=== PATIENT | female | born 1985 | race American Indian/Alaskan Native ===

== ENCOUNTER 2018-09-14 16:15 | Emergency (ER) | payer MEDICAID ==
--- NOTE | 2018-09-14 17:08 | Event Note ---
ED Screening Note ED Screening Note: This is a 33 y.o. F. that presents to the ER with SI with a plan to jump of a bridge. Admits to hearing voices. States she haven't taken prescribed medication for 3 days. Patient admits to meth and marijuana use but nothing today. PMH of depression, HIV, and schizophrenia Patient states she called the crisis number [facility] and they hung up on her. Denies SI This initial assessment/diagnostic orders/clinical plan/treatment(s) is/are subject to change based on patients health status, clinical progression and re- assessment by fellow clinical providers in the ED. Further treatment and workup at subsequent clinical providers discretion. Patient/guardian urged not to elope from the ED as their condition may be serious if not clinically assessed and managed. Initial orders include: Labs
[2018-09-14 17:50] LABS: Basophils % (Auto) 0.6 % (0.0-1.8); Eosinophils # (Auto) 0.2 K/mm3 (0.0-0.4); Eosinophils % (Auto) 5.3 % (0.0-4.3); Hematocrit 36.7 % (30.3-42.9); Hemoglobin 12.1 gm/dl (10.1-14.3); Lymphocytes # (Auto) 0.9 K/mm3 (1.2-5.4); Lymphocytes % (Auto) 24.9 % (13.4-35.0); Mean Corpuscular HGB Conc 33 % (30-34); Mean Corpuscular Volume 87 fl (79-97); Monocytes # (Auto) 0.6 K/mm3 (0.0-0.8); Monocytes % (Auto) 15.5 % (0.0-7.3); Platelet Count 256 K/mm3 (140-440); Red Blood Count 4.21 M/mm3 (3.65-5.03); Red Cell Distribution Width 17.8 % (13.2-15.2)
[2018-09-14 18:03] LABS: Bacteria,Urine 1+ /HPF (Negative); Bilirubin,Urine SM (Negative); Blood,Urine NEG (Negative); Calcium Oxalate Crystals,Urine FEW; Color,Urine Amber (Yellow); Mucus,Urine 3+ /HPF
[2018-09-14 18:11] LABS: Benzodiazepines Screen,Urine PRESUMPTIVE NEGATIVE; Methadone Screen,Urine PRESUMPTIVE NEGATIVE; Opiate Screen,Urine PRESUMPTIVE NEGATIVE
[2018-09-14 18:27] LABS: Amphetamine Screen,Urine PRESUMPTIVE POSITIVE; Cannabinoid Screen,Urine PRESUMPTIVE POSITIVE; Cocaine Screen,Urine PRESUMPTIVE POSITIVE
[2018-09-14 18:29] LABS: Ictotest,Urine Negative (Negative)
[2018-09-14 18:31] LABS: Calcium 8.9 mg/dL (8.4-10.2)
--- NOTE | 2018-09-14 19:49 | Emergency Department Report ---
ED General Adult HPI - General Chief complaint: Psych Stated complaint: SI Time Seen by Provider: 09/14/18 17:03 Source: patient Mode of arrival: Ambulatory Limitations: No Limitations - History of Present Illness Initial comments: Patient is a 33-year-old female with past medical history of being HIV positive as well as depression and schizophrenia who is presenting with suicidal ideations. Patient states that she has been having thoughts of jumping off a bridge for the last 2 days. Patient has history of suicide attempts by drinking bleach. Patient states she doesn't want to live anymore. Patient denies any homicidal ideations or auditory visual hallucinations. Patient also states that for the past 3-4 days she's had a cough productive of clear sputum. Patient has had chills. Patient has minimal shortness of breath. Severity scale (0 -10): 0 - Related Data Allergies Allergy/AdvReac Type Severity Reaction Status Date / Time shellfish derived Allergy Unknown Verified 09/14/18 17:06 ED Review of Systems ROS: Stated complaint: SI Other details as noted in HPI Comment: All other systems reviewed and negative ED Past Medical Hx - Past Medical History Previous Medical History?: Yes Hx Psychiatric Treatment: Yes (paranoid schizophrenic) Hx HIV: Yes (on anti-virals) - Surgical History Past Surgical History?: No Additional Surgical History: x3 - Social History Smoking Status: Current Every Day Smoker Substance Use Type: Alcohol, Marijuana, Methamphetamines, Other ED Physical Exam - General Limitations: No Limitations General appearance: alert, in no apparent distress - Head Head exam: Present: atraumatic, normocephalic - Eye Eye exam: Present: normal appearance - ENT ENT exam: Present: mucous membranes moist - Neck Neck exam: Present: normal inspection - Respiratory Respiratory exam: Present: normal lung sounds bilaterally. Absent: respiratory distress, wheezes, rales, rhonchi - Cardiovascular Cardiovascular Exam: Present: regular rate, normal rhythm. Absent: systolic murmur, diastolic murmur, rubs, gallop - GI/Abdominal GI/Abdominal exam: Present: soft, normal bowel sounds. Absent: distended, tenderness, guarding, rebound - Extremities Exam Extremities exam: Present: normal inspection - Back Exam Back exam: Present: normal inspection - Neurological Exam Neurological exam: Present: alert, oriented X3 - Psychiatric Psychiatric exam: Present: normal affect, normal mood - Skin Skin exam: Present: warm, dry, intact, normal color. Absent: rash ED Course Vital Signs 09/14/18 09/14/18 17:03 18:38 Temperature 100.5 F H 99.7 F H Pulse Rate 106 H 89 Respiratory 18 18 Rate Blood Pressure 152/58 Blood Pressure 112/95 [Left] O2 Sat by Pulse 99 100 Oximetry ED Medical Decision Making - Lab Data Result diagrams: 09/14/18 17:26 09/14/18 17:26 Lab Results 09/14/18 09/14/18 09/14/18 Range/Units 17:25 17:25 17:26 WBC (4.5-11.0) K/mm3 RBC (3.65-5.03) M/mm3 Hgb (10.1-14.3) gm/dl Hct (30.3-42.9) % MCV (79-97) fl MCH (28-32) pg MCHC (30-34) % RDW (13.2-15.2) % Plt Count (140-440) K/mm3 Lymph % (Auto) (13.4-35.0) % [place] % (Auto) (0.0-7.3) % Eos % (Auto) (0.0-4.3) % Baso % (Auto) (0.0-1.8) % Lymph # (1.2-5.4) K/mm3 [place] # (0.0-0.8) K/mm3 Eos # (0.0-0.4) K/mm3 Baso # (0.0-0.1) K/mm3 Seg Neutrophils % (40.0-70.0) % Seg Neutrophils # (1.8-7.7) K/mm3 Sodium (137-145) mmol/L Potassium (3.6-5.0) mmol/L Chloride (98-107) mmol/L Carbon Dioxide (22-30) mmol/L Anion Gap mmol/L BUN (7-17) mg/dL Creatinine (0.7-1.2) mg/dL Estimated GFR ml/min BUN/Creatinine Ratio % Glucose (65-100) mg/dL Calcium (8.4-10.2) mg/dL HCG, Qual Negative (Negative) Urine Color [place] (Yellow) Urine Turbidity Cloudy (Clear) Urine pH 5.0 (5.0-7.0) Ur Specific [place] 1.040 H (1.003-1.030) Urine Protein 30 mg/dl (Negative) mg/dL Urine Glucose (UA) Neg (Negative) mg/dL Urine Ketones Tr (Negative) mg/dL Urine Blood Neg (Negative) Urine Nitrite Neg (Negative) Urine Bilirubin Sm (Negative) Urine Ictotest Negative (Negative) Urine Urobilinogen 2.0 (<2.0) mg/dL Ur Leukocyte Esterase Tr (Negative) Urine WBC (Auto) 2.0 (0.0-6.0) /HPF Urine RBC (Auto) 5.0 (0.0-6.0) /HPF U Epithel Cells (Auto) 42.0 H (0-13.0) /HPF Urine Bacteria (Auto) 1+ (Negative) /HPF Calcium Oxalate Crystal Few Urine Mucus 3+ /HPF Salicylates (2.8-20.0) mg/dL Urine Opiates Screen Presumptive negative Urine Methadone Screen Presumptive negative Acetaminophen (10.0-30.0) ug/mL Ur Barbiturates Screen Presumptive negative Ur Phencyclidine Scrn Presumptive negative Ur Amphetamines Screen Presumptive positive U Benzodiazepines Scrn Presumptive negative Urine Cocaine Screen Presumptive positive U Marijuana (THC) Screen Presumptive positive Drugs of Abuse Note Disclamer Plasma/Serum Alcohol (0-0.07) % 09/14/18 09/14/18 09/14/18 Range/Units 17:26 17:26 17:26 WBC (4.5-11.0) K/mm3 RBC (3.65-5.03) M/mm3 Hgb (10.1-14.3) gm/dl Hct (30.3-42.9) % MCV (79-97) fl MCH (28-32) pg MCHC (30-34) % RDW (13.2-15.2) % Plt Count (140-440) K/mm3 Lymph % (Auto) (13.4-35.0) % [place] % (Auto) (0.0-7.3) % Eos % (Auto) (0.0-4.3) % Baso % (Auto) (0.0-1.8) % Lymph # (1.2-5.4) K/mm3 [place] # (0.0-0.8) K/mm3 Eos # (0.0-0.4) K/mm3 Baso # (0.0-0.1) K/mm3 Seg Neutrophils % (40.0-70.0) % Seg Neutrophils # (1.8-7.7) K/mm3 Sodium 140 (137-145) mmol/L Potassium 4.0 (3.6-5.0) mmol/L Chloride 104.4 (98-107) mmol/L Carbon Dioxide 25 (22-30) mmol/L Anion Gap 15 mmol/L BUN 10 (7-17) mg/dL Creatinine 1.2 (0.7-1.2) mg/dL Estimated GFR 52 ml/min BUN/Creatinine Ratio 8 % Glucose 83 (65-100) mg/dL Calcium 8.9 (8.4-10.2) mg/dL HCG, Qual (Negative) Urine Color (Yellow) Urine Turbidity (Clear) Urine pH (5.0-7.0) Ur Specific [place] (1.003-1.030) Urine Protein (Negative) mg/dL Urine Glucose (UA) (Negative) mg/dL Urine Ketones (Negative) mg/dL Urine Blood (Negative) Urine Nitrite (Negative) Urine Bilirubin (Negative) Urine Ictotest (Negative) Urine Urobilinogen (<2.0) mg/dL Ur Leukocyte Esterase (Negative) Urine WBC (Auto) (0.0-6.0) /HPF Urine RBC (Auto) (0.0-6.0) /HPF U Epithel Cells (Auto) (0-13.0) /HPF Urine Bacteria (Auto) (Negative) /HPF Calcium Oxalate Crystal Urine Mucus /HPF Salicylates < 0.3 L (2.8-20.0) mg/dL Urine Opiates Screen Urine Methadone Screen Acetaminophen < 5.0 L (10.0-30.0) ug/mL Ur Barbiturates Screen Ur Phencyclidine Scrn Ur Amphetamines Screen U Benzodiazepines Scrn Urine Cocaine Screen U Marijuana (THC) Screen Drugs of Abuse Note Plasma/Serum Alcohol (0-0.07) % 09/14/18 09/14/18 Range/Units 17:26 17:26 WBC 3.7 L (4.5-11.0) K/mm3 RBC 4.21 (3.65-5.03) M/mm3 Hgb 12.1 (10.1-14.3) gm/dl Hct 36.7 (30.3-42.9) % MCV 87 (79-97) fl MCH 29 (28-32) pg MCHC 33 (30-34) % RDW 17.8 H (13.2-15.2) % Plt Count 256 (140-440) K/mm3 Lymph % (Auto) 24.9 (13.4-35.0) % [place] % (Auto) 15.5 H (0.0-7.3) % Eos % (Auto) 5.3 H (0.0-4.3) % Baso % (Auto) 0.6 (0.0-1.8) % Lymph # 0.9 L (1.2-5.4) K/mm3 [place] # 0.6 (0.0-0.8) K/mm3 Eos # 0.2 (0.0-0.4) K/mm3 Baso # 0.0 (0.0-0.1) K/mm3 Seg Neutrophils % 53.7 (40.0-70.0) % Seg Neutrophils # 2.0 (1.8-7.7) K/mm3 Sodium (137-145) mmol/L Potassium (3.6-5.0) mmol/L Chloride (98-107) mmol/L Carbon Dioxide (22-30) mmol/L Anion Gap mmol/L BUN (7-17) mg/dL Creatinine (0.7-1.2) mg/dL Estimated GFR ml/min BUN/Creatinine Ratio % Glucose (65-100) mg/dL Calcium (8.4-10.2) mg/dL HCG, Qual (Negative) Urine Color (Yellow) Urine Turbidity (Clear) Urine pH (5.0-7.0) Ur Specific [place] (1.003-1.030) Urine Protein (Negative) mg/dL Urine Glucose (UA) (Negative) mg/dL Urine Ketones (Negative) mg/dL Urine Blood (Negative) Urine Nitrite (Negative) Urine Bilirubin (Negative) Urine Ictotest (Negative) Urine Urobilinogen (<2.0) mg/dL Ur Leukocyte Esterase (Negative) Urine WBC (Auto) (0.0-6.0) /HPF Urine RBC (Auto) (0.0-6.0) /HPF U Epithel Cells (Auto) (0-13.0) /HPF Urine Bacteria (Auto) (Negative) /HPF Calcium Oxalate Crystal Urine Mucus /HPF Salicylates (2.8-20.0) mg/dL Urine Opiates Screen Urine Methadone Screen Acetaminophen (10.0-30.0) ug/mL Ur Barbiturates Screen Ur Phencyclidine Scrn Ur Amphetamines Screen U Benzodiazepines Scrn Urine Cocaine Screen U Marijuana (THC) Screen Drugs of Abuse Note Plasma/Serum Alcohol < 0.01 (0-0.07) % - Radiology Data Radiology results: image reviewed (CXR WNKL) - Medical Decision Making There is a 33-year-old Citizen Of [place] female who is presenting with suicidal ideations. Patient also noted to have a low-grade temperature and cough. X- rays negative for infiltrate. Patient will be started on Bactrim secondary to her HIV positive status and not knowing her CD4 count. Patient is medically cleared for psychiatric placement at this time. Critical care attestation.: If time is entered above; I have spent that time in minutes in the direct care of this critically ill patient, excluding procedure time. ED Disposition Clinical Impression: Suicidal ideation, Encounter for psychiatric assessment Upper respiratory infection Qualifiers: URI type: unspecified URI Qualified Code(s): J06.9 - Acute upper respiratory infection, unspecified Disposition: DC/TX-65 PSY HOSP/PSY UNIT Is pt being admited?: No Does the pt Need Aspirin: No Condition: Stable Time of Disposition: 20:05
--- NOTE | 2018-09-14 20:05 | XRay Report ---
CHEST 2 VIEWS 195 INDICATION / CLINICAL INFORMATION: cough with fever. COMPARISON: None available. FINDINGS: SUPPORT DEVICES: None. HEART / MEDIASTINUM: No significant abnormality. LUNGS / PLEURA: No significant pulmonary or pleural abnormality. No pneumothorax. ADDITIONAL FINDINGS: No significant additional findings. IMPRESSION: No significant acute abnormality Signer Name: Nico Redmond MD Signed: 09/14/2018 8:00 PM Workstation Name: [id number]
[2018-09-14] MEDS: BACTRIM DS PO SCH (22:44)
[2018-09-14] MEDS ORDERED: ATIVAN IV PRN (22:56)
[2018-09-14] MEDS ORDERED: ATIVAN PO PRN ×2 (22:56)
[2018-09-15] MEDS ORDERED: BENADRYL PO ONE (08:48)
[2018-09-15] MEDS: BACTRIM DS PO SCH ×2 (09:52→22:06)
--- NOTE | 2018-09-15 13:53 | Consultation ---
History of Present Illness - Reason for Consult Consult date: 09/15/18 Reason for consult: Mental Health Evaluation Requesting physician: CIRILO DHALIWAL - Chief Complaint Chief complaint: "I don't know what to do" - History of Present Psychiatric Illness 33 y.o. AA female who presented to the ER for SI's. Today the patient was calm and cooperative during t he assessment. She endorsed SI's with a plan to jump off a bridge. She stated that she dealing with a lot of stressors at this time. The patient did not elaborate about her stressors when asked. She did acknowledged a past suicide attempt. She stated that she has a hx of depression and took Wellbutrin that was effective. She stated that she haven't been compliant with her medication in weeks. She stated that she is from [place], [place]. She denies Hi's and AVH's. She denies a poor appetite, but acknowledged erratic sleep because of her stressors. She stated that she have used recreational drugs all her life. She denies alcohol consumption (etoh). . Medications and Allergies Allergies Allergy/AdvReac Type Severity Reaction Status Date / Time shellfish derived Allergy Unknown Verified 09/14/18 17:06 Active Meds: Active Medications Lorazepam (Ativan) 2 mg PO Q1HR PRN PRN Reason: CIWA-Ar 8-15 Lorazepam (Ativan) 4 mg PO Q1HR PRN PRN Reason: CIWA-Ar 16-25 Lorazepam (Ativan) 4 mg IV Q15MIN PRN PRN Reason: CIWA-Ar >25 Trimethoprim/Sulfamethoxazole (Bactrim Ds) 1 each PO Q12HR NIELS Last Admin: 09/15/18 09:52 Dose: 1 each Documented by: Past psychiatric history - Past Medical History Past Medical History: HIV/AIDS, other (Preg x 4) Past Surgical History: No surgical history - past Psychiatric treatment and history psychiatric treatment history: Hx of depression and substance abuse. Denies a fam psy hx. - Social History Social history: lives with family Mental Status Exam - Vital signs Last Vital Signs Temp 99.3 F 09/15/18 13:47 Pulse 71 09/15/18 13:47 Resp 18 09/15/18 13:47 BP 117/67 09/15/18 08:02 Pulse Ox 96 09/15/18 13:47 - Exam Narrative exam: MSE: Appearance: calm, cooperative Behavior: regular eye contact Speech: regular rate and tone Mood: "depressed" Affect: flat Thought Process: circumstantial Thought Content: denies HI's and AVH's Motor Activity: sitting up in bed Cognition: A/O x3 Insight: variable to fair Judgment: poor Results Result Diagrams: 09/14/18 17:26 09/14/18 17:26 Abnormal lab results 09/14/18 09/14/18 09/14/18 Range/Units 17:25 17:26 17:26 WBC (4.5-11.0) K/mm3 RDW (13.2-15.2) % [place] % (Auto) (0.0-7.3) % Eos % (Auto) (0.0-4.3) % Lymph # (1.2-5.4) K/mm3 POC Glucose (70-105) Ur Specific [place] 1.040 H (1.003-1.030) U Epithel Cells (Auto) 42.0 H (0-13.0) /HPF Salicylates < 0.3 L (2.8-20.0) mg/dL Acetaminophen < 5.0 L (10.0-30.0) ug/mL 09/14/18 09/15/18 Range/Units 17:26 12:11 WBC 3.7 L (4.5-11.0) K/mm3 RDW 17.8 H (13.2-15.2) % [place] % (Auto) 15.5 H (0.0-7.3) % Eos % (Auto) 5.3 H (0.0-4.3) % Lymph # 0.9 L (1.2-5.4) K/mm3 POC Glucose 132 H (70-105) Ur Specific [place] (1.003-1.030) U Epithel Cells (Auto) (0-13.0) /HPF Salicylates (2.8-20.0) mg/dL Acetaminophen (10.0-30.0) ug/mL All other labs normal. Assessment and Plan Assessment and plan: Impression: MDD, Severe Type. Substance Use DO (cocaine/amphetamines).Cannabis Use DO. Today the patient was calm and cooperative dung the assessment. The patient endorsed SI's. No acute withdrawals noted. DDx: Substance Induced Mood DO Recommendation/Plan: Continue 1013 and start Wellbutrin 150 mg PO daily for depression and Melatonin 5 mg PO HS for sleep. Discussed possible suicidality/medication induced rebeka with the patient reference Wellbutrin, she verbalize understanding. Ordered Line of site for safety, the patient's assigned nurse informed. Dispo: The patient was referred to inpatient psy services. Will staff with Dr Ami Mary.
[2018-09-15] MEDS: WELLBUTRIN PO SCH (15:14)
[2018-09-15] MEDS: MELATONIN PO SCH (22:06)
[2018-09-16] MEDS: BACTRIM DS PO SCH ×2 (09:48→21:49)
[2018-09-16] MEDS: WELLBUTRIN PO SCH (09:49)
[2018-09-16] MEDS ORDERED: BENADRYL PO ONE (11:35)
--- NOTE | 2018-09-16 13:35 | Progress Note ---
Subjective - Reason for Consult Consult date: 09/16/18 Reason for consult: Psychiatry Follow-up - Chief Complaint Chief complaint: "The patient refused to talk" 33 y.o. AA female who presented to the ER for SI's. Today the patient refused to cooperate during the assessment. Will follow up with the patient in 24 hours. Mental Status Exam - Vital signs Last Vital Signs Temp 98.0 F 09/16/18 08:04 Pulse 71 09/16/18 08:04 Resp 18 09/16/18 08:04 BP 108/66 09/16/18 08:04 Pulse Ox 100 09/16/18 08:04 - Exam Narrative exam: Unable to complete the MSE because the patient refused to cooperate. Assessment and Plan Impression: MDD, Severe Type. Substance Use DO (cocaine/amphetamines).Cannabis Use DO. Today the patient refused to cooperate during the assessment. DDx: Substance Induced Mood DO Recommendation/Plan: Continue 1013 and Wellbutrin 150 mg PO daily for depression and Melatonin 5 mg PO HS for sleep. Discussed possible suicidality/medication induced rebeka with the patient reference Wellbutrin, she verbalize understanding. Ordered Line of site for safety, the patient's assigned nurse informed. Dispo: The patient was referred to inpatient psy services. Will staff with Dr Ami Mary.
[2018-09-16] MEDS: MELATONIN PO SCH (21:49)
[2018-09-17] MEDS: WELLBUTRIN PO SCH (10:35)
[2018-09-17] MEDS: BACTRIM DS PO SCH ×2 (10:35→21:31)
--- NOTE | 2018-09-17 16:55 | Progress Note ---
Subjective - Reason for Consult Consult date: 09/17/18 Reason for consult: follow up - Chief Complaint Chief complaint: "I want to jump off a bridge." 33 y.o. AA female who presented to the ER for SI to jump off a bridge. Yesterday the record indicates she was uncooperative. Today she complains of cough and wants medication. The nurse is stationed outside her room and has not heard her cough. She states she is still suicidal but the voices "aren't so bad" now that she has her medication. She is not taking an antipsychotic. Mental Status Exam - Vital signs Last Vital Signs Temp 98.6 F 09/17/18 08:54 Pulse 83 09/17/18 08:54 Resp 18 09/17/18 08:54 BP 119/75 09/17/18 08:54 Pulse Ox 99 09/17/18 08:54 - Exam Orientation: time, place, person Affect: depressed Mood: congruent with affect Thought content: other (suicidal ideation with a plan) Thought Process: Circumstantial Perceptions: auditory, hallucinations Speech: normal rate and pattern Concentration: focused Motor activity: restless Level of consciousness: alert Memory: Intact Sleep Symptoms: Difficulty Falling Asleep Appetite: decreased Interaction: cooperative Assessment and Plan Impression: MDD, Severe Type. Psychosis unspecified Substance Use DO (cocaine/amphetamines).Cannabis Use DO. DDx: Substance Induced psychotic disorder. substance induced mood disorder Recommendation/Plan: Continue 1013 and Wellbutrin 150 mg PO daily for depression and Melatonin 5 mg PO HS for sleep. Discussed possible suicidality/medication induced rebeka with the patient reference Wellbutrin, she verbalize unde rstanding. consider antipsychotic if AH persist. nurse informed of her complaint of cough Dispo: The patient was referred to inpatient psy services. Will staff with Dr Ami Mary.
[2018-09-17] MEDS: MELATONIN PO SCH (21:31)
[2018-09-18] MEDS: WELLBUTRIN PO SCH (11:02)
[2018-09-18] MEDS: BACTRIM DS PO SCH ×2 (11:02→22:25)
--- NOTE | 2018-09-18 18:19 | Progress Note ---
Subjective - Reason for Consult Consult date: 09/18/18 Reason for consult: follow up - Chief Complaint Chief complaint: "Have you got the bridge yet; to jump off of?" 33 y.o. AA female who presented to the ER for SI to jump off a bridge. She reports suicidal ideation. She is concerned she is not getting her usual medications for schizophrenia/bipolar. She is also concerned she is not getting her HIV meds. She brought them to the hospital. Nursing staff reconciled her meds while UI ENGINEER present. Mental Status Exam - Vital signs Last Vital Signs Temp 98.2 F 09/18/18 13:38 Pulse 87 09/18/18 13:38 Resp 18 09/18/18 13:38 BP 118/73 09/18/18 13:38 Pulse Ox 100 09/18/18 13:38 - Exam Narrative exam: Orientation: time, place, person Affect: depressed Mood: congruent with affect Thought content: other (suicidal ideation with a plan) Thought Process: Circumstantial Perceptions: auditory, hallucinations Speech: normal rate and pattern Concentration: focused Motor activity: restless Level of consciousness: alert Memory: Intact Sleep Symptoms: Difficulty Falling Asleep Appetite: decreased Interaction: cooperative Assessment and Plan Impression: reports hx of schizoaffective d/o, bipolar type no manic symptoms continues to have suicidal ideation with a plan Substance Use DO (cocaine/amphetamines).Cannabis Use DO. DDx: Substance Induced psychotic disorder. substance induced mood disorder Recommendation/Plan: Continue 1013 and Wellbutrin xl 150 mg PO daily for depression, depakote er 1000mg hs, and vistaril 50mg tid, and seroquel 200mg hs. Discussed possible suicidality/medication induced rebeka with the patient reference Wellbutrin, she verbalize understanding. She states this combination of medication works well for her. Dispo: The patient was referred to inpatient psy services. Will staff with Dr Ami Mary.
[2018-09-18] MEDS: VALTREX PO SCH (22:25)
[2018-09-18] MEDS: NORVIR PO SCH (22:30)
[2018-09-18] MEDS: DESCOVY PO SCH (22:30)
[2018-09-18] MEDS: PREZISTA PO SCH (22:30)
[2018-09-18] MEDS: VISTARIL PO PRN (22:46)
[2018-09-19 08:58] LABS: Alanine Aminotransferase 10 units/L (7-56)
[2018-09-19] MEDS ORDERED: WELLBUTRIN XL PO SCH (10:00)
[2018-09-19] MEDS: VALTREX PO SCH (11:00)
[2018-09-19] MEDS: DESCOVY PO SCH (11:00)
[2018-09-19] MEDS: NORVIR PO SCH (11:00)
[2018-09-19] MEDS: BACTRIM DS PO SCH (11:00)
[2018-09-19] MEDS: PREZISTA PO SCH (11:00)
[2018-09-19] MEDS: VISTARIL PO PRN (13:12)
--- NOTE | 2018-09-20 08:20 | Progress Note ---
Subjective - Reason for Consult Consult date: 09/19/18 Reason for consult: Pscyhiatry Follow-up - Chief Complaint Chief complaint: "The patient refused to cooperate" 33 y.o. AA female who presented to the ER for SI's. Today the patient refused to cooperate during the assessment. Several attempts was made to engage the patient, but was unsuccessful. Will attempt to reassess the patient in 24 hours. Mental Status Exam - Vital signs Last Vital Signs Temp 98.4 F 09/19/18 13:00 Pulse 101 H 09/19/18 13:00 Resp 18 09/19/18 13:00 BP 153/98 09/19/18 13:00 Pulse Ox 100 09/19/18 13:00 - Exam Narrative exam: Unable to complete the MSE because the patient refused to cooperate. Assessment and Plan Impression: MDD, Severe Type. Substance Use DO (cocaine/amphetamines).Cannabis Use DO. Today the patient refused to cooperate during the assessment. DDx: Substance Induced Mood DO Recommendation/Plan: Continue 1013 and Wellbutrin 150 mg PO daily for depression, Depakote 1000 mg PO HS for mood, Seroquel 200 mg PO HS for mood, and Vistaril 50 mg PO TID PRN for acute anxiety. Discussed possible suicidality/medication induced rebeka with the patient reference Wellbutrin, she verbalize understanding. Ordered Line of site for safety, the patient's assigned nurse informed. Dispo: The patient was referred to inpatient psy services. Staffed with Dr Ami Mary.
--- NOTE | 2018-09-20 10:14 | Progress Note ---
Subjective - Reason for Consult Consult date: 09/20/18 Reason for consult: Psychiatry Follow-up - Chief Complaint Chief complaint: "I have to much going" 33 y.o. AA female who presented to the ER for SI's. Today the patient calm during the assessment. She stated that she has a lot on her mind that she does not want to discuss. She did state that life isn't fair. She continue to endorse SI's with a plan to jump off as bridge. She denies HI's and AVH's. Mental Status Exam - Vital signs Last Vital Signs Temp 97.4 F L 09/20/18 09:00 Pulse 92 H 09/20/18 09:00 Resp 16 09/20/18 09:00 BP 113/80 09/20/18 09:00 Pulse Ox 95 09/20/18 09:00 - Exam Narrative exam: MSE: Appearance: calm, cooperative Behavior: regular eye contact Speech: regular rate and tone Mood: "depressed" Affect: flat Thought Process: circumstantial Thought Content: denies HI's and AVH's Motor Activity: sitting up in bed Cognition: A/O x3 Insight: vague Judgment: poor Assessment and Plan Impression: MDD, Severe Type. Substance Use DO (cocaine/amphetamines).Cannabis Use DO. Today the patient was calm during the during the assessment. The patient endorsed SI's with a plan to jum; DDx: Substance Induced Mood DO Recommendation/Plan: Reevaluate the patient's 1013 in 24 hours to determine if it will be extended. Continue Wellbutrin 150 mg PO daily for depression, Depakote 1000 mg PO HS for mood, Seroquel 200 mg PO HS for mood, and Vistaril 50 mg PO TID PRN for acute anxiety. Discussed possible suicidality/medication induced rebeka with the patient reference Wellbutrin, she verbalize understanding. Ordered Line of site for safety, the patient's assigned nurse informed. Dispo: The patient was referred to inpatient psy services. Staffed with Dr Ami Mary.
[2018-09-20 10:21] LABS: Chol/HDL Ratio 2.51 %
[2018-09-20] MEDS: WELLBUTRIN XL PO SCH (11:05)
[2018-09-20] MEDS: VISTARIL PO PRN (11:05)
[2018-09-20] MEDS ORDERED: VALACYCLOVIR 1000 MG PO SCH (16:00)
[2018-09-20] MEDS ORDERED: NON-FORMULARY (Valacyclovir Hcl [Valtrex] 1,000 MG) PO SCH (16:00)
[2018-09-20] MEDS: DESCOVY PO SCH (16:10)
[2018-09-20] MEDS: NORVIR PO SCH (16:11)
[2018-09-20] MEDS: PREZISTA PO SCH (16:11)
[2018-09-21] MEDS ORDERED: COLACE PO ONE (11:18)
[2018-09-21] MEDS: WELLBUTRIN XL PO SCH (11:25)
[2018-09-21] MEDS: NORVIR PO SCH ×2 (11:25→11:27)
[2018-09-21] MEDS: DESCOVY PO SCH ×2 (11:25→11:27)
[2018-09-21] MEDS: PREZISTA PO SCH ×2 (11:25→11:28)
[2018-09-21] MEDS: VALTREX PO SCH (11:30)
[2018-09-21] MEDS: VISTARIL PO PRN ×2 (11:47→23:57)
--- NOTE | 2018-09-21 13:34 | Progress Note ---
Subjective - Reason for Consult Consult date: 09/21/18 Reason for consult: Psychiatric Follow-up Evaluation - Chief Complaint Chief complaint: "I feel okay." Patient is a 33 y.o. AA female who presented to the ER for suicidal ideations. Today the patient is calm and cooperative during the assessment. She states, " I'm still going to jump off the bridge. I'm depressed. I don't want to talk about it." Patient reports appropriate sleep and appetite. Later she reports intermittent VH's of demons. She denies AH's and delusions. Mental Status Exam - Vital signs Last Vital Signs Temp 98.1 F 09/21/18 08:09 Pulse 82 09/21/18 08:09 Resp 16 09/21/18 08:09 BP 107/65 09/21/18 08:09 Pulse Ox 100 09/21/18 08:09 - Exam Narrative exam: Mental Status Exam: Appearance: calm, cooperative Behavior: regular eye contact Speech: regular rate and tone Mood: "okay"; depressed Affect: flat Thought Process: circumstantial Thought Content: denies HI's and AH's; + SI's and VH's Motor Activity: sitting up in bed Cognition: A/O x 3 Insight: poor Judgment: poor Assessment and Plan Impression: MDD, Severe Type. Substance Use DO (cocaine/amphetamines).Cannabis Use DO. Today the patient is calm and cooperative during the during the assessment. The patient endorses SI's with a plan to jump off bridge and intermittent VH's of demons. DDx: Substance Induced Mood DO Recommendation/Plan: 1. Will extend patient's 1013. 2. Continue Wellbutrin 150 mg PO daily for depression, Depakote 1000 mg PO HS for mood, Seroquel 200 mg PO HS for mood, and Vistaril 50 mg PO TID PRN for acute anxiety. Discussed possible suicidality/medication induced rebeka with the patient reference Wellbutrin, she verbalize understanding. Ordered Line of site for safety, the patient's assigned nurse informed. Disposition: Accepted to [facility]. Staffed with Dr. Ami Mary.
[2018-09-22] MEDS: DESCOVY PO SCH (11:00)
[2018-09-22] MEDS: PREZISTA PO SCH (11:00)
[2018-09-22] MEDS: NORVIR PO SCH (11:00)
--- NOTE | 2018-09-22 11:38 | Progress Note ---
Subjective - Reason for Consult Consult date: 09/22/18 Reason for consult: Psychiatry Follow-up - Chief Complaint Chief complaint: "I have nothing to talk about" Patient is a 33 y.o. AA female who presented to the ER for suicidal ideations. Today the patient is somewhat uncooperative during the assessment. She would not answer most questions asked of her. She continue to endorse SI's, but would not confirm or deny a suicide plan. No gestures of HI's. No indications of side effects of her medications. Mental Status Exam - Vital signs Last Vital Signs Temp 98.1 F 09/22/18 07:00 Pulse 68 09/22/18 07:00 Resp 18 09/22/18 07:00 BP 102/78 09/22/18 07:00 Pulse Ox 100 09/22/18 07:00 - Exam Narrative exam: MSE: Appearance: calm Behavior: regular eye contact Speech: regular rate and tone Mood: unable to assess Affect: flat Thought Process: unable to assess Thought Content: no gestures of HI's Motor Activity: sitting up in bed Cognition: A/O x3 Insight: vague Judgment: poor Assessment and Plan Impression: MDD, Severe Type. Substance Use DO (cocaine/amphetamines).Cannabis Use DO. Today the patient was calm during the during the assessment. DDx: Substance Induced Mood DO Recommendation/Plan: Continue 1013, Wellbutrin 150 mg PO daily for depression, Depakote 1000 mg PO HS for mood, Seroquel 200 mg PO HS for mood, and Vistaril 50 mg PO TID PRN for acute anxiety. Discussed possible suicidality/medication induced rebeka with the patient reference Wellbutrin, she verbalize understanding. Ordered Line of site for safety, the patient's assigned nurse informed. Dispo: The patient was accepted at [facility] for inpatient psy services, pending transport time. . Will staff with Dr Ami Mary.
[2018-09-22] MEDS: VALTREX PO SCH (12:00)
[2018-09-22] MEDS: WELLBUTRIN XL PO SCH (12:00)
[2018-09-22] MEDS: VISTARIL PO PRN ×2 (15:50→21:39)
[2018-09-23] MEDS: DESCOVY PO SCH (10:49)
[2018-09-23] MEDS: NORVIR PO SCH (10:49)
[2018-09-23] MEDS: VALTREX PO SCH (10:49)
[2018-09-23] MEDS: PREZISTA PO SCH (10:49)
[2018-09-23] MEDS: WELLBUTRIN XL PO SCH (11:00)
[2018-09-23 15:11] VITALS: BP 107/73
--- NOTE | 2018-09-23 15:28 | Progress Note ---
Subjective - Reason for Consult Consult date: 09/23/18 Reason for consult: Psychiatry Follow-up - Chief Complaint Chief complaint: "I want help" Patient is a 33 y.o. AA female who presented to the ER for suicidal ideations. Today the patient was calm during the assessment. She stated that she need help for her drug use and mental health. The patient have been vague and uncooperative previously during the interview. She was more engaging today. She continue to endorse SI's. She denies HI's and AVH's. She denies any side effects from her medications. Mental Status Exam - Vital signs Last Vital Signs Temp 97.7 F 09/23/18 13:40 Pulse 103 H 09/23/18 13:40 Resp 18 09/23/18 13:40 BP 107/73 09/23/18 13:40 Pulse Ox 100 09/23/18 13:40 - Exam Narrative exam: MSE: Appearance: calm Behavior: regular eye contact Speech: regular rate and tone Mood: "okay" Affect: flat Thought Process: circumstantial Thought Content: denies HI's and AVH's Motor Activity: sitting up in bed Cognition: A/O x3 Insight: variable Judgment: poor Assessment and Plan Impression: MDD, Severe Type. Substance Use DO (cocaine/amphetamines).Cannabis Use DO. Today the patient was calm during the assessment. DDx: Substance Induced Mood DO Recommendation/Plan: Continue 1013, Wellbutrin 150 mg PO daily for depression, Depakote 1000 mg PO HS for mood, Seroquel 200 mg PO HS for mood, and Vistaril 50 mg PO TID PRN for acute anxiety. Discussed possible suicidality/medication induced rebeka with the patient reference Wellbutrin, she verbalize understanding. Ordered Line of site for safety, the patient's assigned nurse informed. Dispo: The patient was accepted at [facility] for inpatient psy services, pending transport time. . Will staff with Dr Ami Mary.
== END 2018-09-23 19:47 ==
LOC: EEVIPCON 16:15 → ED 16:15
DX: F32.9 Major depressive disorder, single episode, unspecified (principal); R45.851 Suicidal ideations; J06.9 Acute upper respiratory infection, unspecified; F20.0 Paranoid schizophrenia; F17.200 Nicotine dependence, unspecified, uncomplicated; F12.10 Cannabis abuse, uncomplicated; F15.10 Other stimulant abuse, uncomplicated; Z21 Asymptomatic human immunodeficiency virus [HIV] infection status; Z91.013 Allergy to seafood
CPT/HCPCS: 36415; 71046; 80048; 80061; 80164; 80307; 80320; 81001; 82150; 82962; 83036; 83690; 84075; 84450; 84460; 84703; 85025; G0480; Q0177

== ENCOUNTER 2018-11-27 19:43 | Emergency (ER) | payer SELFPAY ==
[2018-11-27 20:31] LABS: Bilirubin,Urine NEG (Negative); Blood,Urine NEG (Negative); Color,Urine Amber (Yellow); Mucus,Urine 2+ /HPF
[2018-11-27 20:39] LABS: Benzodiazepines Screen,Urine PRESUMPTIVE NEGATIVE; Methadone Screen,Urine PRESUMPTIVE NEGATIVE; Opiate Screen,Urine PRESUMPTIVE NEGATIVE
[2018-11-27 21:01] LABS: Amphetamine Screen,Urine PRESUMPTIVE POSITIVE; Cannabinoid Screen,Urine PRESUMPTIVE POSITIVE; Cocaine Screen,Urine PRESUMPTIVE POSITIVE
[2018-11-27 21:36] LABS: Basophils % (Auto) 0.6 % (0.0-1.8); Eosinophils # (Auto) 0.4 K/mm3 (0.0-0.4); Eosinophils % (Auto) 7.8 % (0.0-4.3); Hematocrit 36.7 % (30.3-42.9); Hemoglobin 11.7 gm/dl (10.1-14.3); Lymphocytes # (Auto) 1.3 K/mm3 (1.2-5.4); Lymphocytes % (Auto) 25.9 % (13.4-35.0); Mean Corpuscular HGB Conc 32 % (30-34); Mean Corpuscular Volume 85 fl (79-97); Monocytes # (Auto) 0.5 K/mm3 (0.0-0.8); Monocytes % (Auto) 9.3 % (0.0-7.3); Platelet Count 327 K/mm3 (140-440); Red Blood Count 4.34 M/mm3 (3.65-5.03); Red Cell Distribution Width 18.6 % (13.2-15.2)
[2018-11-27 22:08] LABS: Calcium 8.9 mg/dL (8.4-10.2)
[2018-11-27] MEDS ORDERED: HALDOL IM PRN (22:19)
[2018-11-27] MEDS ORDERED: ATIVAN IM PRN (22:19)
--- NOTE | 2018-11-27 22:21 | Emergency Department Report ---
<DOMINGO HOOK - Last Filed: 11/27/18 23:42> ED General Adult HPI - General Chief complaint: Psych Stated complaint: SUICIDAL/MH EVAL Time Seen by Provider: 11/27/18 21:16 Source: patient, police (collateral information is not available at this time. However, the patient reportedly is brought to the hospital by EMS.), EMS ( EMS documentation not available at time of chart dictation ), RN notes reviewed, old records reviewed Mode of arrival: Ambulatory Limitations: No Limitations - History of Present Illness Initial comments: This is a 33-year-old female who is not known to this provider previously. Patient presents to the ER with a primary complaint of painless suicidality. Patient's past history includes schizophrenia, reported HIV, not currently taking any medications. The patient denies physical pain. The patient indicated that she wanted to jump off of her bridge, or hang herself. She does not endorse any other complaints at this time. She indicates that she would like to sleep. There is no indication of trauma. -: Gradual Severity scale (0 -10): 0 Improves with: none Worsens with: none Associated Symptoms: denies other symptoms - Related Data Home Medications Medication Instructions Recorded Confirmed Last Taken Valacyclovir HCl [Valtrex] 1,000 mg PO QDAY 09/15/18 11/27/18 1 Month Ago ~10/28/18 Darunavir [Prezista] 800 mg PO QDAY 09/18/18 11/27/18 1 Month Ago ~10/28/18 Descovy 200-25 mg Tablet 200 mg PO DAILY 09/18/18 11/27/18 1 Month Ago ~10/28/18 Ritonavir [Norvir] 100 mg PO QDAY 09/20/18 11/27/18 1 Month Ago ~10/28/18 Allergies Allergy/AdvReac Type Severity Reaction Status Date / Time shellfish derived Allergy Unknown Verified 09/14/18 17:06 ED Review of Systems Constitutional: denies: malaise Eyes: denies: eye discharge ENT: denies: epistaxis Respiratory: denies: wheezing Cardiovascular: denies: syncope Gastrointestinal: denies: abdominal pain Genitourinary: denies: dysuria Musculoskeletal: denies: back pain Psychiatric: suicidal thoughts ED Past Medical Hx - Past Medical History Previous Medical History?: Yes Hx Psychiatric Treatment: Yes (paranoid schizophrenic noncompliant x1 month) Hx HIV: Yes (on anti-virals noncompliant x 1 month) - Surgical History Past Surgical History?: Yes Additional Surgical History: x3 - Social History Smoking Status: Current Every Day Smoker Substance Use Type: None - Medications Home Medications: Home Medications Medication Instructions Recorded Confirmed Last Taken Type Valacyclovir HCl [Valtrex] 1,000 mg PO QDAY 09/15/18 11/27/18 1 Month Ago History ~10/28/18 Darunavir [Prezista] 800 mg PO QDAY 09/18/18 11/27/18 1 Month Ago History ~10/28/18 Descovy 200-25 mg Tablet 200 mg PO DAILY 09/18/18 11/27/18 1 Month Ago History ~10/28/18 Ritonavir [Norvir] 100 mg PO QDAY 09/20/18 11/27/18 1 Month Ago History ~10/28/18 ED Physical Exam - General Limitations: No Limitations General appearance: alert, in no apparent distress - Head Head exam: Present: atraumatic, normocephalic - Eye Eye exam: Present: normal appearance, EOMI. Absent: nystagmus - ENT ENT exam: Present: normal exam, normal orophraynx, mucous membranes moist, normal external ear exam - Neck Neck exam: Present: normal inspection, full ROM. Absent: tenderness, meningismus - Respiratory Respiratory exam: Present: normal lung sounds bilaterally. Absent: respiratory distress - Cardiovascular Cardiovascular Exam: Present: regular rate, normal rhythm, normal heart sounds. Absent: bradycardia, tachycardia, irregular rhythm, systolic murmur, diastolic murmur, rubs, gallop - GI/Abdominal GI/Abdominal exam: Present: soft. Absent: distended, tenderness, guarding, rebound, rigid, pulsatile mass - Extremities Exam Extremities exam: Present: normal inspection, full ROM, other (2+ pulses noted in the bilateral upper, lower extremities. There is no long bone tenderness. Musculoskeletal compartments are soft. The pelvis is stable.). Absent: pedal edema, joint swelling, calf tenderness - Back Exam Back exam: Present: normal inspection. Absent: tenderness, CVA tenderness (R), paraspinal tenderness, vertebral tenderness - Neurological Exam Neurological exam: Present: alert (the patient is sleepy but arousable), other (is no facial droop. Moving 4 extremities spontaneously. Phonating in full sentences. Extraocular movements are intact. 5 out of 5 strength in 4 extrem ities.) - Psychiatric Psychiatric exam: Present: flat affect, suicidal ideation - Skin Skin exam: Present: warm, dry, intact, normal color. Absent: rash ED Course - Reevaluation(s) Reevaluation #1: 11/27/18 23:42 Laboratory studies reviewed and appreciated. Patient does not appear to have an immediate medical contraindication to psychiatric admission, evaluation, consultation, and placement at this time. Crisis team will be updated. ED Medical Decision Making - Lab Data Result diagrams: 11/27/18 21:02 11/27/18 21:02 Vital Signs 11/27/18 19:59 Temperature 99.3 F Pulse Rate 98 H Respiratory 18 Rate Blood Pressure 121/84 [Left] O2 Sat by Pulse 100 Oximetry Lab Results 11/27/18 11/27/18 11/27/18 Range/Units 21:02 21:02 21:02 WBC (4.5-11.0) K/mm3 RBC (3.65-5.03) M/mm3 Hgb (10.1-14.3) gm/dl Hct (30.3-42.9) % MCV (79-97) fl MCH (28-32) pg MCHC (30-34) % RDW (13.2-15.2) % Plt Count (140-440) K/mm3 Lymph % (Auto) (13.4-35.0) % [place] % (Auto) (0.0-7.3) % Eos % (Auto) (0.0-4.3) % Baso % (Auto) (0.0-1.8) % Lymph # (1.2-5.4) K/mm3 [place] # (0.0-0.8) K/mm3 Eos # (0.0-0.4) K/mm3 Baso # (0.0-0.1) K/mm3 Seg Neutrophils % (40.0-70.0) % Seg Neutrophils # (1.8-7.7) K/mm3 Sodium 139 (137-145) mmol/L Potassium 4.0 (3.6-5.0) mmol/L Chloride 99.8 (98-107) mmol/L Carbon Dioxide 21 L (22-30) mmol/L Anion Gap 22 mmol/L BUN 7 (7-17) mg/dL Creatinine 1.4 H (0.7-1.2) mg/dL Estimated GFR 53 ml/min BUN/Creatinine Ratio 5 % Glucose 66 (65-100) mg/dL Calcium 8.9 (8.4-10.2) mg/dL HCG, Qual (Negative) Urine Color (Yellow) Urine Turbidity (Clear) Urine pH (5.0-7.0) Ur Specific [place] (1.003-1.030) Urine Protein (Negative) mg/dL Urine Glucose (UA) (Negative) mg/dL Urine Ketones (Negative) mg/dL Urine Blood (Negative) Urine Nitrite (Negative) Urine Bilirubin (Negative) Urine Urobilinogen (<2.0) mg/dL Ur Leukocyte Esterase (Negative) Urine WBC (Auto) (0.0-6.0) /HPF Urine RBC (Auto) (0.0-6.0) /HPF U Epithel Cells (Auto) (0-13.0) /HPF Urine Mucus /HPF Salicylates < 0.3 L (2.8-20.0) mg/dL Urine Opiates Screen Urine Methadone Screen Acetaminophen < 5.0 L (10.0-30.0) ug/mL Ur Barbiturates Screen Ur Phencyclidine Scrn Ur Amphetamines Screen U Benzodiazepines Scrn Urine Cocaine Screen U Marijuana (THC) Screen Drugs of Abuse Note Plasma/Serum Alcohol (0-0.07) % 11/27/18 11/27/18 11/27/18 Range/Units 21:02 21:02 21:02 WBC 5.1 (4.5-11.0) K/mm3 RBC 4.34 (3.65-5.03) M/mm3 Hgb 11.7 (10.1-14.3) gm/dl Hct 36.7 (30.3-42.9) % MCV 85 (79-97) fl MCH 27 L (28-32) pg MCHC 32 (30-34) % RDW 18.6 H (13.2-15.2) % Plt Count 327 (140-440) K/mm3 Lymph % (Auto) 25.9 (13.4-35.0) % [place] % (Auto) 9.3 H (0.0-7.3) % Eos % (Auto) 7.8 H (0.0-4.3) % Baso % (Auto) 0.6 (0.0-1.8) % Lymph # 1.3 (1.2-5.4) K/mm3 [place] # 0.5 (0.0-0.8) K/mm3 Eos # 0.4 (0.0-0.4) K/mm3 Baso # 0.0 (0.0-0.1) K/mm3 Seg Neutrophils % 56.4 (40.0-70.0) % Seg Neutrophils # 2.9 (1.8-7.7) K/mm3 Sodium (137-145) mmol/L Potassium (3.6-5.0) mmol/L Chloride (98-107) mmol/L Carbon Dioxide (22-30) mmol/L Anion Gap mmol/L BUN (7-17) mg/dL Creatinine (0.7-1.2) mg/dL Estimated GFR ml/min BUN/Creatinine Ratio % Glucose (65-100) mg/dL Calcium (8.4-10.2) mg/dL HCG, Qual Negative (Negative) Urine Color (Yellow) Urine Turbidity (Clear) Urine pH (5.0-7.0) Ur Specific [place] (1.003-1.030) Urine Protein (Negative) mg/dL Urine Glucose (UA) (Negative) mg/dL Urine Ketones (Negative) mg/dL Urine Blood (Negative) Urine Nitrite (Negative) Urine Bilirubin (Negative) Urine Urobilinogen (<2.0) mg/dL Ur Leukocyte Esterase (Negative) Urine WBC (Auto) (0.0-6.0) /HPF Urine RBC (Auto) (0.0-6.0) /HPF U Epithel Cells (Auto) (0-13.0) /HPF Urine Mucus /HPF Salicylates (2.8-20.0) mg/dL Urine Opiates Screen Urine Methadone Screen Acetaminophen (10.0-30.0) ug/mL Ur Barbiturates Screen Ur Phencyclidine Scrn Ur Amphetamines Screen U Benzodiazepines Scrn Urine Cocaine Screen U Marijuana (THC) Screen Drugs of Abuse Note Plasma/Serum Alcohol < 0.01 (0-0.07) % 11/27/18 11/27/18 Range/Units Unknown Unknown WBC (4.5-11.0) K/mm3 RBC (3.65-5.03) M/mm3 Hgb (10.1-14.3) gm/dl Hct (30.3-42.9) % MCV (79-97) fl MCH (28-32) pg MCHC (30-34) % RDW (13.2-15.2) % Plt Count (140-440) K/mm3 Lymph % (Auto) (13.4-35.0) % [place] % (Auto) (0.0-7.3) % Eos % (Auto) (0.0-4.3) % Baso % (Auto) (0.0-1.8) % Lymph # (1.2-5.4) K/mm3 [place] # (0.0-0.8) K/mm3 Eos # (0.0-0.4) K/mm3 Baso # (0.0-0.1) K/mm3 Seg Neutrophils % (40.0-70.0) % Seg Neutrophils # (1.8-7.7) K/mm3 Sodium (137-145) mmol/L Potassium (3.6-5.0) mmol/L Chloride (98-107) mmol/L Carbon Dioxide (22-30) mmol/L Anion Gap mmol/L BUN (7-17) mg/dL Creatinine (0.7-1.2) mg/dL Estimated GFR ml/min BUN/Creatinine Ratio % Glucose (65-100) mg/dL Calcium (8.4-10.2) mg/dL HCG, Qual (Negative) Urine Color [place] (Yellow) Urine Turbidity Slightly-cloudy (Clear) Urine pH 5.0 (5.0-7.0) Ur Specific [place] 1.029 (1.003-1.030) Urine Protein 30 mg/dl (Negative) mg/dL Urine Glucose (UA) Neg (Negative) mg/dL Urine Ketones Tr (Negative) mg/dL Urine Blood Neg (Negative) Urine Nitrite Neg (Negative) Urine Bilirubin Neg (Negative) Urine Urobilinogen 2.0 (<2.0) mg/dL Ur Leukocyte Esterase Neg (Negative) Urine WBC (Auto) 2.0 (0.0-6.0) /HPF Urine RBC (Auto) 2.0 (0.0-6.0) /HPF U Epithel Cells (Auto) 8.0 (0-13.0) /HPF Urine Mucus 2+ /HPF Salicylates (2.8-20.0) mg/dL Urine Opiates Screen Presumptive negative Urine Methadone Screen Presumptive negative Acetaminophen (10.0-30.0) ug/mL Ur Barbiturates Screen Presumptive negative Ur Phencyclidine Scrn Presumptive negative Ur Amphetamines Screen Presumptive positive U Benzodiazepines Scrn Presumptive negative Urine Cocaine Screen Presumptive positive U Marijuana (THC) Screen Presumptive positive Drugs of Abuse Note Disclamer Plasma/Serum Alcohol (0-0.07) % - Medical Decision Making Differential diagnosis, including but not limited to: Psychosis, suicidality, medical clearance for psychiatric placement, medication noncompliance Assessment and plan: 33-year-old female, no evidence of trauma, calm and cooperative, endorsing suicidality with plan to jump off a bridge and having herself. Screening laboratory studies ordered. 1013 order. Psychiatric consultation ordered. Laboratory studies so far appear To be at baseline. ED Disposition Clinical Impression: Medical clearance for psychiatric admission, Non compliance w medication regimen Disposition: DC/TX-65 PSY HOSP/PSY UNIT Does the pt Need Aspirin: No Condition: Good Referrals: PRIMARY CAREMD [Primary Care Provider] - 3-5 Days <CIRILO DHALIWAL - Last Filed: 11/29/18 04:42> ED Review of Systems ROS: Stated complaint: SUICIDAL/MH EVAL Other details as noted in HPI ED Course Vital Signs 11/27/18 11/28/18 11/28/18 19:59 01:15 09:00 Temperature 99.3 F 98.7 F 98.2 F Pulse Rate 98 H 65 60 Respiratory 18 18 16 Rate Blood Pressure 121/84 102/59 102/65 [Left] O2 Sat by Pulse 100 100 99 Oximetry 11/28/18 11/29/18 19:53 02:18 Temperature 98.1 F 98.4 F Pulse Rate 69 67 Respiratory 18 16 Rate Blood Pressure 115/84 112/42 [Left] O2 Sat by Pulse 98 100 Oximetry - Reevaluation(s) Reevaluation #2: 11/29/18 04:42 This has been accepted to [facility] Medical Decision Making - Lab Data Result diagrams: 11/27/18 21:02 11/27/18 21:02 Critical care attestation.: If time is entered above; I have spent that time in minutes in the direct care of this critically ill patient, excluding procedure time. ED Disposition Is pt being admited?: No Does the pt Need Aspirin: No Time of Disposition: 04:42
--- NOTE | 2018-11-28 12:55 | Consultation ---
History of Present Illness - Reason for Consult Consult date: 11/28/18 Reason for consult: Mental Health Evaluation Requesting physician: DOMINGO HOOK - Chief Complaint Chief complaint: "The patient refused to cooperate" - History of Present Psychiatric Illness 33 y.o. A female who presented to the ER for SI's. Today the patient was calm, but uncooperative during the assessment. Several attempts was made to engage the patient, but was unsuccessful. Medications and Allergies Allergies Allergy/AdvReac Type Severity Reaction Status Date / Time shellfish derived Allergy Unknown Verified 09/14/18 17:06 Home Medications Medication Instructions Recorded Confirmed Last Taken Type Valacyclovir HCl [Valtrex] 1,000 mg PO QDAY 09/15/18 11/27/18 1 Month Ago History ~10/28/18 Darunavir [Prezista] 800 mg PO QDAY 09/18/18 11/27/18 1 Month Ago History ~10/28/18 Descovy 200-25 mg Tablet 200 mg PO DAILY 09/18/18 11/27/18 1 Month Ago History ~10/28/18 Ritonavir [Norvir] 100 mg PO QDAY 09/20/18 11/27/18 1 Month Ago History ~10/28/18 Active Meds: Active Medications Haloperidol Lactate (Haldol) 5 mg IM Q6HR PRN PRN Reason: Agitation Lorazepam (Ativan) 2 mg IM Q4HR PRN PRN Reason: Agitation Past psychiatric history - Past Medical History Past Medical History: other (Unable to obtain ) Past Surgical History: Other (Unable to obtain ) - past Psychiatric treatment and history psychiatric treatment history: Hx of Mood DO per previous ER visit. Unable to obtain a fam psy hx. - Social History Social history: other (Unable to obtain ) Mental Status Exam - Vital signs Last Vital Signs Temp 98.2 F 11/28/18 09:00 Pulse 60 11/28/18 09:00 Resp 16 11/28/18 09:00 BP 102/65 11/28/18 09:00 Pulse Ox 99 11/28/18 09:00 - Exam Narrative exam: Unable to complete the MSE because the patient refused to cooperate. Results Result Diagrams: 11/27/18 21:02 11/27/18 21:02 Abnormal lab results 11/27/18 11/27/18 11/27/18 Range/Units 21:02 21:02 21:02 MCH (28-32) pg RDW (13.2-15.2) % [place]w % (Auto) (0.0-7.3) % Eos % (Auto) (0.0-4.3) % Carbon Dioxide 21 L (22-30) mmol/L Creatinine 1.4 H (0.7-1.2) mg/dL Salicylates < 0.3 L (2.8-20.0) mg/dL Acetaminophen < 5.0 L (10.0-30.0) ug/mL Valproic Acid (50-100) ug/mL 11/27/18 11/27/18 Range/Units 21:02 22:13 MCH 27 L (28-32) pg RDW 18.6 H (13.2-15.2) % Bartholomew % (Auto) 9.3 H (0.0-7.3) % Eos % (Auto) 7.8 H (0.0-4.3) % Carbon Dioxide (22-30) mmol/L Creatinine (0.7-1.2) mg/dL Salicylates (2.8-20.0) mg/dL Acetaminophen (10.0-30.0) ug/mL Valproic Acid < 2.8 L (50-100) ug/mL All other labs normal. Assessment and Plan Assessment and plan: impression: Today the patient was calm, but uncooperative during the assessment. Recommendation/Plan: Continue 1013 and attempt to reassess the patient in 24 hours. Dispo: The patient was referred to inpatient psy services. Will staff with Dr Ami Mary.
[2018-11-29 03:20] VITALS: BP 112/42
--- NOTE | 2018-11-29 07:33 | Progress Note ---
Subjective - Reason for Consult Consult date: 11/29/18 Reason for consult: Psychiatry Follow-up - Chief Complaint Chief complaint: "The patient continue to be uncooperative" 33 y.o. A female who presented to the ER for SI's. Today the patient was calm, but continue to be uncooperative during the assessment. She would not answer any questions. Several attempts was made to engage the patient, but again I the provider was unsuccessful. Mental Status Exam - Vital signs Last Vital Signs Temp 98.4 F 11/29/18 02:18 Pulse 67 11/29/18 02:18 Resp 16 11/29/18 02:18 BP 112/42 11/29/18 02:18 Pulse Ox 100 11/29/18 02:18 - Exam Narrative exam: Unable to complete the MSE because the patient refused to cooperate. Assessment and Plan impression: Today the patient was calm, but continue to be uncooperative during the assessment. Recommendation/Plan: Continue 1013. Dispo: The patient was accepted at [facility] for inpatient psy services. Will staff with Dr Ami Mary.
== END 2018-11-29 12:55 ==
LOC: EEVIPCON 19:43 → ED 19:43
DX: F20.0 Paranoid schizophrenia (principal); F17.200 Nicotine dependence, unspecified, uncomplicated; Z21 Asymptomatic human immunodeficiency virus [HIV] infection status; Z91.14 Patient's other noncompliance with medication regimen; Z91.013 Allergy to seafood
CPT/HCPCS: 36415; 80048; 80164; 80307; 80320; 81001; 82550; 84703; 85025; G0480